=== PATIENT | female | born 1985 | race American Indian/Alaskan Native ===

== ENCOUNTER 2018-05-14 22:55 | Emergency (ER) | payer MEDICAID, OTHER ==
[2018-05-14 23:07] VITALS: TEMP 98; O2SAT 100
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
[2018-05-15 00:05] VITALS: BP 123/52; PULSE 105; RESP 16
== END 2018-05-15 00:46 | disposition home or self-care (01) ==
LOC: H.ER 22:55
DX: F43.20 Adjustment disorder, unspecified (principal); Z00.8 Encounter for other general examination